=== PATIENT | female | born 1960 | race Two or more races ===

== ENCOUNTER 2016-05-15 09:25 | Outpatient (CLI) | payer BC, OTHER | END 2016-05-15 09:26 | disposition home or self-care (01) | DX: Z00.00 Encounter for general adult medical examination without abnormal findings (principal); Z51.81 Encounter for therapeutic drug level monitoring ==

== ENCOUNTER 2016-05-21 11:10 | Outpatient (CLI) | payer OTHER | END 2016-05-21 11:11 | disposition home or self-care (01) | DX: M25.50 Pain in unspecified joint (principal) ==

== ENCOUNTER 2016-06-16 10:23 | Outpatient (CLI) | payer OTHER | END 2016-06-16 10:24 | disposition home or self-care (01) | DX: M85.88 Other specified disorders of bone density and structure, other site (principal) ==

== ENCOUNTER 2016-06-16 10:25 | Outpatient (CLI) | payer OTHER | END 2016-06-16 10:26 | disposition home or self-care (01) | DX: Z12.31 Encounter for screening mammogram for malignant neoplasm of breast (principal) ==

== ENCOUNTER 2016-12-02 16:27 | Outpatient (CLI) | payer OTHER ==
--- NOTE | 2016-12-03 11:55 | XRAY Report ---
LUMBAR SPINE COMPLETE STUDY: 12/02/2016 HISTORY: Pain. FINDINGS: There are five nonrib-bearing vertebrae. Mild disk and facet changes are noted in the low er lumbar spine with early endplate and periarticular sclerosis. There is no spondylolysis or spondylolisthesis. There is no fracture or focus of destruction. The SI joint spaces are preserved. The visualized sacral ala are intact. IMPRESSION: MILD DEGENERATIVE DISK AND FACET CHANGES IN THE LOWER LUMBAR SPINE. JOB #: [id number] EXT JOB #:[id number]
== END 2016-12-02 16:28 | disposition home or self-care (01) ==
LOC: DI 16:27
PROVIDERS: ATTEND Chiropractor
DX: M51.36 Other intervertebral disc degeneration, lumbar region (principal); M47.896 Other spondylosis, lumbar region
CPT/HCPCS: 72110

== ENCOUNTER 2017-01-22 07:45 | Day surgery (SDC) | payer OTHER ==
[2017-01-22] MEDS ORDERED: LACTATED RINGERS 1,000 ML IV ONE (08:34)
[2017-01-22] MEDS ORDERED: fentaNYL 100 MCG/2 ML VIAL IVP ONE (10:43)
[2017-01-22] MEDS ORDERED: MIDAZOLAM 2 MG/2 ML VIAL IVP ONE (10:43)
[2017-01-22 12:24] VITALS: BP 111/66
== END 2017-01-22 07:46 | disposition home or self-care (01) ==
LOC: SDS 07:45
PROVIDERS: ATTEND Surgery
PROC: 0DBK8ZX Excision of Ascending Colon, Via Natural or Artificial Opening Endoscopic, Diagnostic (ICD-10-PCS; principal; 2017-01-22 09:00)
DX: Z12.11 Encounter for screening for malignant neoplasm of colon (principal); D12.2 Benign neoplasm of ascending colon; K64.8 Other hemorrhoids; M79.7 Fibromyalgia; E78.00 Pure hypercholesterolemia, unspecified
CPT/HCPCS: 45385; J7120

== ENCOUNTER 2018-10-06 08:00 | Outpatient (CLI) | payer BC ==
[2018-10-06 12:26] LABS: BASOPHILS % (AUTO) 0.9 %; EOSINOPHILS # (AUTO) 0.1 10^3/uL (0.0-0.7); EOSINOPHILS % (AUTO) 1.5 %; HGB - HEMOGLOBIN 11.9 g/dL (12.0-16.0); LYMPHOCYTES # (AUTO) 1.4 10^3/uL (1.5-3.5); LYMPHOCYTES % (AUTO) 29.6 %; MEAN CORPUSCULAR HEMOGLOBIN 30.7 pg (27.0-31.0); MEAN CORPUSCULAR HGB CONC 32.4 g/dL (32.0-36.0); MEAN CORPUSCULAR VOLUME 94.8 fL (81.0-99.0); MEAN PLATELET VOLUME 9.9 fL (7.9-10.8); MONOCYTES # (AUTO) 0.4 10^3/uL (0.0-1.0); MONOCYTES % (AUTO) 9.2 %; NEUTROPHILS # (AUTO) 2.7 10^3/uL (1.5-6.6); NEUTROPHILS % (AUTO) 58.4 %; PLT - PLATELET COUNT 307 10^3/uL (130-450); RED BLOOD COUNT 3.87 10^6/uL (4.20-5.40); RED CELL DISTRIBUTION WIDTH 12.8 % (12.0-15.0); WHITE BLOOD COUNT 4.7 x10^3/uL (4.8-10.8)
[2018-10-06 12:43] LABS: ALBUMIN 4.2 g/dL (3.2-5.5); ALBUMIN/GLOBULIN RATIO 1.2 (1.0-2.2); ALKALINE PHOSPHATASE 59 IU/L (42-121); ALT ALANINE AMINOTRANSFERASE 35 IU/L (10-60); AST ASPARTATE AMINOTRANSFERASE 31 IU/L (10-42); BILIRUBIN,TOTAL 0.8 mg/dL (0.2-1.0); BUN - BLOOD UREA NITROGEN 9 mg/dL (6-20); CALCIUM 9.3 mg/dL (8.5-10.3); CARBON DIOXIDE - CO2 27 mmol/L (21-32); CHLORIDE 104 mmol/L (101-111); CHOL/HDL RATIO 2.6 (<4.4); CHOLESTEROL 220 mg/dL; CREATININE 0.6 mg/dL (0.4-1.0); GFR - MDRD 102 (>89); GLUCOSE 90 mg/dL (70-100); HDL CHOLESTEROL 85 mg/dL; LDL CHOLESTEROL,CALCULATED 125 mg/dL; LDL/HDL RATIO 1.5 (<4.4); SODIUM 140 mmol/L (135-145); TOTAL PROTEIN 7.7 g/dL (6.7-8.2); VLDL CHOLESTEROL 10 mg/dL
== END 2018-10-06 08:01 | disposition home or self-care (01) ==
LOC: LAB.WCP 08:00
PROVIDERS: ATTEND Physician Assistant Medical
DX: Z00.00 Encounter for general adult medical examination without abnormal findings (principal)
CPT/HCPCS: 36415; 80053; 80061; 83721; 84443; 85025

== ENCOUNTER 2019-01-04 15:11 | Outpatient (CLI) | payer BC ==
--- NOTE | 2019-01-05 09:22 | DEXA Report ---
Reason: BONE DISORDER Procedure Date: 01/04/2019 Accession Number: [id number] / [id number] Procedure: DEX - Dexa Spine and/or Hip CPT Code: FULL RESULT: EXAM: Dexa Spine and/or Hip DATE: 01/04/2019 3:45 PM CLINICAL HISTORY: Follow-up osteopenia TECHNIQUE: Dual energy x-ray absorptiometry (DXA) was performed on a [employer] System. Regions measured are the AP Spine, femoral neck, and if needed forearm. COMPARISON: 06/16/2016 In accordance with the International Society for Clinical Densitometry (ISCD) guidelines, data from previous exams may be reanalyzed using current recommendations and techniques. This is done to allow a more accurate basis for comparison with the current study. FINDINGS: The data for the lumbar spine is as follows: BMD (g/cm/cm) T-SCORE Z-SCORE REGION L1 1.035 -0.8 0.4 L2 1.022 -1.5 -0.3 L3 1.011 -1.6 -0.4 L4 1.084 -1.0 0.3 TOTAL 1.040 -1.2 0.1 NOTE: All evaluable vertebrae are used for classification The data for the hip is as follows: BMD (g/cm/cm) T-SCORE Z-SCORE REGION Neck 0.939 -0.7 0.5 TOTAL 1.019 0.1 1.0 NOTE: The femoral neck or total proximal femur, whichever is lowest, is used for classification. DXA RESULTS SUMMARY: Spine SCAN DATE AGE BMD CHANGE VS CHANGE VS PREVIOUS PREVIOUS % [birth year][age]04/2019 60.4 1.040 0.027 2.7 06/16/2016 57.8 1.013 * Denotes significant change at the 95% confidence level. Denotes dissimilar scan types or analysis methods. DXA RESULTS SUMMARY: Hip SCAN DATE AGE BMD CHANGE VS CHANGE VS PREVIOUS PREVIOUS % [birth year][age]04/2019 60.4 1.019 -0.06* -5.6* 06/16/2016 57.8 1.079 * Denotes significant change at the 95% confidence level. Denotes dissimilar scan types or analysis methods. IMPRESSION: THE WHO CLASSIFICATION BASED ON THE INTERNATIONAL REFERENCE STANDARD IS OSTEOPENIA, REFERENCE LUMBAR SPINE. THE FRACTURE RISK IS INCREASED. RECOMMENDATION: Patients with diagnosis of osteoporosis or osteopenia should have regular bone mineral density assessment. For those eligible for Medicare, routine testing is allowed once every 2 years. Testing frequency can be increased for patients who have rapidly progressing disease or for those who are receiving medical therapy to restore bone mass. COMMENT: World Health Organization (WHO) definitions for osteoporosis and osteopenia: NORMAL BMD: T-score at -1.0 or higher, fracture risk is low OSTEOPENIA BMD: T-score between -1.0 and -2.5, fracture risk is increased. OSTEOPOROSIS BMD: T-score at -2.5 or lower, fracture risk is high. National Osteoporosis Foundation recommends: 1. Obtain adequate dietary calcium (at least 1200 mg per day) and vitamin D (400-800 international units per day). 2. Participate, as appropriate, in regular weightbearing and muscle-strengthening exercise. 3. Avoid tobacco use and reduce alcohol and caffeine intake. 4. For more detailed information see the website at www.NOF.org.
== END 2019-01-04 15:12 | disposition home or self-care (01) ==
LOC: DI 15:11
PROVIDERS: ATTEND Physician Assistant Medical
DX: M85.88 Other specified disorders of bone density and structure, other site (principal)
CPT/HCPCS: 77080

== ENCOUNTER 2019-01-04 15:13 | Outpatient (CLI) | payer BC ==
--- NOTE | 2019-01-05 09:00 | Mammography Report ---
Reason: SCREENING MAMMO Procedure Date: 01/04/2019 Accession Number: [id number] / [id number] Procedure: ALFONSO - Screening Mammo w/Neel CPT Code: FULL RESULT: EXAM: Screening Mammo w/Neel DATE: 01/04/2019 4:04 PM CLINICAL HISTORY: Routine screening TECHNIQUE: (B) - Bilateral CC and MLO views were obtained. COMPARISON: 06/16/2016, 05/09/2015 and 09/29/2012 PARENCHYMAL PATTERN: (D) - The breasts demonstrate heterogeneously dense fibroglandular parenchyma bilaterally. FINDINGS: No significant interval change. There are no suspicious masses, calcifications, or areas of distortion. IMPRESSION: Negative examination. BI-RADS category 1. RECOMMENDATION: (ANNUAL) - Recommend routine annual screening mammography. BI-RADS CATEGORY: (1) - Negative. STANDARD QUALIFYING STATEMENTS: 1. This examination was not reviewed with the aid of Computer-Aided Detection (CAD). 2. A negative or benign imaging report should not preclude biopsy if clinically suspicious findings are present. 3. Dense breasts may obscure an underlying neoplasm. 4. This examination was reviewed with the aid of 3D breast imaging (tomosynthesis).
== END 2019-01-04 15:14 | disposition home or self-care (01) ==
LOC: DI 15:13
DX: Z12.31 Encounter for screening mammogram for malignant neoplasm of breast (principal)
CPT/HCPCS: 77063; 77067

== ENCOUNTER 2019-05-23 13:30 | Outpatient (CLI) | payer OTHER ==
--- NOTE | 2019-05-23 15:55 | Ultrasound Report ---
Reason: ABNORMAL MAMMO RT BREAST Procedure Date: 05/23/2019 Accession Number: [id number] / [id number] Procedure: US - Breast Unilateral Limited CPT Code: Final Report FULL RESULT: EXAM: Diagnostic Dig RT; Breast Unilateral Ultrasound Right Limited DATE: 05/23/2019 2:35 PM CLINICAL HISTORY: Right breast upper outer quadrant discomfort, pain. Sister diagnosed with breast cancer November 2018. COMPARISON: 01/04/2019, 06/16/2016, 05/09/2015, 09/29/2012, 07/29/2011. MAMMOGRAM: TECHNIQUE: (R) - Right CC and MLO views were obtained. PARENCHYMAL PATTERN: (D) - The breast demonstrates heterogeneously dense fibroglandular parenchyma. FINDINGS: Compared with prior mammograms there is a developing area of architectural distortion in the 10:00 position right breast approximately 5 cm from the nipple best appreciated on CC mariaelena 29, MLO mariaelena 28, and ML mariaelena 30. A few faint microcalcifications may also be present. RIGHT BREAST ULTRASOUND: TECHNIQUE: Real time scanning by the cath lab radiology technician with me present and saved static images reviewed. FINDINGS: There is a possible hypoechoic taller than wide nodule at the 9:30 position 4 cm from the nipple measuring 4 x 3 x 3 mm. No other potential correlate for the mammographic finding is seen. IMPRESSION: Suspicious findings. BI-RADS category 4. RECOMMENDATION: (BIOPSY) - Recommend right breast biopsy using stereotactic tomographic guidance. Suggest follow-up right breast ultrasound postbiopsy and clip placement to determine if the potential ultrasound finding persists and if it corresponds to the biopsied mammographic abnormality. BI-RADS CATEGORY: (4) - Suspicious. STANDARD QUALIFYING STATEMENTS: 1. This examination was not reviewed with the aid of Computer-Aided Detection (CAD). 2. A negative or benign imaging report should not preclude biopsy if clinically suspicious findings are present. 3. Dense breasts may obscure an underlying neoplasm. 4. This examination was reviewed with the aid of 3D breast imaging (tomosynthesis). Results called to and discussed with Paula Nicole 3:30 PM May 23, 2019.
== END 2019-05-23 13:31 | disposition home or self-care (01) ==
LOC: DI 13:30
PROVIDERS: ATTEND Physician Assistant Medical
DX: N64.4 Mastodynia (principal); N63.11 Unspecified lump in the right breast, upper outer quadrant; Z80.3 Family history of malignant neoplasm of breast
CPT/HCPCS: 76642

== ENCOUNTER 2019-06-30 08:44 | Outpatient (CLI) | payer OTHER ==
[~2019-06-30 08:44] MED LIST: BUFFERED LIDOCAINE 10 ML SYRINGE ONE
--- NOTE | 2019-06-30 12:58 | Mammography Report ---
Reason: ABNORMAL MAMMOGRAM Procedure Date: 06/30/2019 Accession Number: [id number] / [id number] Procedure: ALFONSO - Stereotactic Core BX RT CPT Code: Final Report FULL RESULT: EXAM: Stereotactic Core BX RT DATE: 06/30/2019 10:45 AM CLINICAL HISTORY: ABNORMAL MAMMOGRAM COMPARISON: None. CLINICAL DATA: Target architectural distortion measuring approximately 1 cm in the 10 o'clock axis of the right breast. Informed consent was obtained. The patient was positioned in the mammography machine with biopsy attachment. Targeting imaging was obtained with 3-D and 2-D technique and the lesion was selected. The breast was approached from the lateral aspect. Using standard aseptic technique, 1% buffered lidocaine was injected into the breasts for local anesthesia. A small shonna was made in the skin with a #11 blade. A 9-gauge vacuum-assisted device was advanced into the breasts towards the target and confirmatory imaging was obtained to verify targeting and 16 specimens were obtained. Specimen radiography was performed which demonstrated the presence of calcifications in the sample. A biopsy marker clip was then placed into the biopsy cavity. The biopsy device was subsequently removed from the breast. Hemostasis was achieved. Follow-up 3-D mammography was then performed to verify biopsy targeting and clip placement. The mammography showed clip placement in the desired location of architectural distortion, verified tomographically . The wound was dressed and ice applied. The patient was observed for approximately 15 minutes, then discharged from the diagnostic imaging Department in stable condition following instructions on wound care and obtaining biopsy results. The patient is scheduled on 07/05/2019 to receive her biopsy results from the referring care provider Paula Nicole . The tissue was sent for histologic analysis. IMPRESSION: Stereotactic biopsy of right breast architectural distortion. [facility]
--- NOTE | 2019-06-30 12:59 | Mammography Report ---
Reason: LEFT BREAST PAIN Procedure Date: 06/30/2019 Accession Number: [id number] / [id number] Procedure: ALFONSO - Diagnostic Dig LT CPT Code: Final Report FULL RESULT: EXAM: Diagnostic Dig LT DATE: 06/30/2019 11:24 AM CLINICAL HISTORY: Diagnostic examination. Left breast pain. TECHNIQUE: (L) - Left CC and MLO views were obtained. Left LM views are obtained. COMPARISON: 05/23/2019 through 08/28/2006. PARENCHYMAL PATTERN: (D) - The breast(s) demonstrate(s) heterogeneously dense fibroglandular parenchyma. FINDINGS: There are no suspicious masses, calcifications, or areas of distortion. IMPRESSION: Negative examination. BI-RADS category 1. RECOMMENDATION: (ANNUAL) - Recommend routine annual screening mammography. BI-RADS CATEGORY: (1) - Negative. STANDARD QUALIFYING STATEMENTS: 1. This examination was not reviewed with the aid of Computer-Aided Detection (CAD). 2. A negative or benign imaging report should not preclude biopsy if clinically suspicious findings are present. 3. Dense breasts may obscure an underlying neoplasm. 4. This examination was reviewed with the aid of 3D breast imaging (tomosynthesis).
[2019-07-01] MEDS ORDERED: BUFFERED LIDOCAINE 10 ML SYRINGE IU ONE (16:33)
== END 2019-06-30 08:45 | disposition home or self-care (01) ==
LOC: DI 08:44
PROVIDERS: ATTEND Physician Assistant Medical
DX: R92.8 Other abnormal and inconclusive findings on diagnostic imaging of breast (principal); N64.4 Mastodynia; N64.1 Fat necrosis of breast
CPT/HCPCS: 19081

== ENCOUNTER 2020-07-26 10:04 | Outpatient (CLI) | payer OTHER ==
[2020-07-26 11:45] LABS: BASOPHILS # (AUTO) 0.1 10^3/uL (0.0-0.1); BASOPHILS % (AUTO) 1.5 %; EOSINOPHILS # (AUTO) 0.1 10^3/uL (0.0-0.7); EOSINOPHILS % (AUTO) 1.5 %; HCT - HEMATOCRIT 40.9 % (37.0-47.0); HGB - HEMOGLOBIN 13.7 g/dL (12.0-16.0); LYMPHOCYTES # (AUTO) 1.4 10^3/uL (1.5-3.5); LYMPHOCYTES % (AUTO) 29.7 %; MEAN CORPUSCULAR HEMOGLOBIN 30.9 pg (27.0-31.0); MEAN CORPUSCULAR HGB CONC 33.5 g/dL (32.0-36.0); MEAN CORPUSCULAR VOLUME 92.1 fL (81.0-99.0); MEAN PLATELET VOLUME 9.7 fL (7.9-10.8); MONOCYTES # (AUTO) 0.4 10^3/uL (0.0-1.0); MONOCYTES % (AUTO) 8.7 %; NEUTROPHILS # (AUTO) 2.8 10^3/uL (1.5-6.6); NEUTROPHILS % (AUTO) 58.4 %; PLT - PLATELET COUNT 303 10^3/uL (130-450); RED BLOOD COUNT 4.44 10^6/uL (4.20-5.40); WHITE BLOOD COUNT 4.7 x10^3/uL (4.8-10.8)
[2020-07-26 12:05] LABS: ALBUMIN 4.6 g/dL (3.2-5.5); ALBUMIN/GLOBULIN RATIO 1.4 (1.0-2.2); ALKALINE PHOSPHATASE 59 IU/L (42-121); ALT ALANINE AMINOTRANSFERASE 23 IU/L (10-60); AST ASPARTATE AMINOTRANSFERASE 26 IU/L (10-42); BILIRUBIN,TOTAL 0.7 mg/dL (0.2-1.0); BUN - BLOOD UREA NITROGEN 16 mg/dL (6-20); CALCIUM 9.4 mg/dL (8.5-10.3); CARBON DIOXIDE - CO2 26 mmol/L (21-32); CHLORIDE 105 mmol/L (101-111); CHOLESTEROL 222 mg/dL; CREATININE 0.6 mg/dL (0.4-1.0); GFR - MDRD 102 (>89); GLUCOSE 103 mg/dL (70-100); HDL CHOLESTEROL 73 mg/dL; LDL CHOLESTEROL,CALCULATED 133 mg/dL; LDL/HDL RATIO 1.8 (<4.4); POTASSIUM 4.2 mmol/L (3.5-5.0); SODIUM 139 mmol/L (135-145); TOTAL PROTEIN 7.9 g/dL (6.7-8.2); TRIGLYCERIDES 82 mg/dL; VLDL CHOLESTEROL 16 mg/dL
[2020-07-26 12:15] LABS: THYROID STIMULATING HORMONE 2.91 uIU/mL (0.34-5.60)
== END 2020-07-26 10:05 | disposition home or self-care (01) ==
LOC: LAB.N 10:04
PROVIDERS: ATTEND Physician Assistant Medical
DX: Z00.00 Encounter for general adult medical examination without abnormal findings (principal)
CPT/HCPCS: 36415; 80053; 80061; 83721; 84443; 85025

== ENCOUNTER 2020-10-02 11:00 | Outpatient (CLI) | payer OTHER ==
--- NOTE | 2020-10-04 11:59 | Mammography Report ---
BILATERAL DIGITAL DIAGNOSTIC MAMMOGRAM 3D/2D: 10/02/2020 CLINICAL: Patient returns for 6 month follow up on right breast calcifications. Routine screening. Comparison is made to exams dated: 06/30/2019 mammogram, 06/30/2019 stereotactic biopsy, 05/23/2019 mamm ogram, 05/23/2019 ultrasound, and 01/04/2019 mammogram - [facility]. The tissue of [place] th breasts is predominantly fatty. There is a marker clip in the appropriate position in the right breast. No suspicious mass or microca lcifications. IMPRESSION: BENIGN No mammographic findings of malignancy. Return to annual mammogram screening schedule is recommended. This exam was interpreted at Station ID: [id number]. NOTE: For mammograms, a report in lay terms will be sent to the patient. Approximately 15% of breast malignancies will not be visualized mammographically. In the management of a palpable breast mass, a negative mammogram must not discourage biopsy of a clinically suspicious lesion. Electronically Signed By: Marcello Darling M.D. jr/:10/04/2020 08:25:02 ACR BI-RADS Category 2: Benign Finding(s) 3342F PARENCHYMAL PATTERN: (A) - The breast(s) demonstrate(s) scattered fibroglandular densities. BI-RADS CATEGORY: (2) - 2 RECOMMENDATION: (ANNUAL) - Recommend routine annual screening mammography. [id number] return to screening LATERALITY: (B)
== END 2020-10-02 11:01 | disposition home or self-care (01) ==
LOC: DI 11:00
PROVIDERS: ATTEND Physician Assistant Medical
DX: N64.4 Mastodynia (principal)